=== PATIENT | female | born 1965 | race Caucasian/White ===

== ENCOUNTER 2018-06-01 11:36 | Outpatient (REF) | payer BC, SELFPAY ==
--- NOTE | 2018-06-01 10:20 | PAPFT_PTH ---
PATIENT: Maria Fernanda Viramontes LOC: [facility] U#:[id number] AGE/SX: 52/F ROOM: RE06/01/[address]: Domenica Carrera : 1965 BED: DIS: 06/01/2018 SPEC #: [id number] RECD: 06/06/18 13:01 STATUS: KAYLA REMarychuy #: [id number] MARIA ELENA: 06/01/18 10:[address]: Domenica Carrera DEPT: [facility] Cytology RECD BY: Mira Randall ENTERED: 06/06/18 13:01 SP TYPE: PAPFT OTHR DR: Kita Hilario Tissues: 1 - CX/ENDOCX FOR PAP SMEARS Procedures: PAP THIN PREP/UVM Screening Comments: [id number] (UNSATISFACTORY FOR EVALUATION)
== END 2018-06-01 11:56 ==
LOC: LBN 11:36
PROVIDERS: PCP Family Medicine; Visit Provider Naturopath
DX: Z12.4 Encounter for screening for malignant neoplasm of cervix (principal); Z01.419 Encounter for gynecological examination (general) (routine) without abnormal findings
CPT/HCPCS: 88142

== ENCOUNTER 2018-07-09 15:06 | Outpatient (REF) | payer BC, SELFPAY ==
--- NOTE | 2018-07-09 11:00 | PAPFT_PTH ---
PATIENT: Maria Fernanda Viramontes LOC: [facility]#:[id number] AGE/SX: 52/F ROOM: RE07/09/[address]: Kita Hilario : 1965 BED: DIS: 07/09/2018 SPEC #: [id number] RECD: 07/09/18 18:10 STATUS: KAYLA REMarychuy #: [id number] MARIA ELENA: 07/09/18 11:[address]: Kita Hilario DEPT: [facility] Cytology RECD BY: Mira Randall Tissues: 1 - CX/ENDOCX FOR PAP SMEARS Procedures: PAP THIN PREP/UVM Screening HPV DNA PROBE Comments: [id number]
== END 2018-07-09 15:26 ==
LOC: NCHCN 15:06
PROVIDERS: PCP Family Medicine; Visit Provider Family Medicine
DX: Z12.4 Encounter for screening for malignant neoplasm of cervix (principal); Z11.51 Encounter for screening for human papillomavirus (HPV); Z00.00 Encounter for general adult medical examination without abnormal findings
CPT/HCPCS: 88142; 87624

== ENCOUNTER 2018-08-06 00:28 | Outpatient (CLI) | payer BC, SELFPAY ==
--- NOTE | 2018-08-06 11:08 | DI.MAMMO_ITS ---
SYMPTOM/DIAGNOSIS: SCREENING, Z12.31 MAMMOGRAMS: Mammograms were interpreted according to the usual protocol including computer analysis with CAD system, tomosynthesis and C view imaging. Comparison is made with prior examinations. Breast density, Category C. No suspicious masses or microcalcifications are seen. There is no definite evidence of malignancy. IMPRESSION: Negative mammogram. Routine screening is recommended. Category 1. MQSA ASSESSMENT OF FINDINGS: Negative. Category 1. Patient will receive a letter notifying them of these results. Bi-RADS category C. The breasts are heterogeneously dense, which may obscure small masses.
== END 2018-08-06 00:48 ==
PROVIDERS: PCP Family Medicine; Visit Provider Family Medicine
DX: Z12.31 Encounter for screening mammogram for malignant neoplasm of breast (principal)
CPT/HCPCS: 77063; 77067

== ENCOUNTER 2018-09-24 10:06 | Day surgery (SDC) | payer BC, SELFPAY ==
--- NOTE | 2018-09-24 06:50 | W.COLOREPORT ---
Date of service: 09/24/18 Time of Service: 11:23 Colonoscopy Report Date of procedure: 09/24/18 Pre-op diagnosis general: Colon Cancer Screening Post-op diagnosis procedure note: other (colon polyp) Procedure: Colonoscopy with polypectomy with cold forceps Surgeon: Genny Singh Anesthesia proc note operative: other (General/ ASA 1 /Munir Alvarez CRNA) Estimated blood loss (mL): 3 Complications: None Disposition: same day Indications: Mrs. Viramontes is a pleasant 52 year old female seen in the office for her first Colonoscopy. There is no family history. Risks, benefits and complications have been reviewed. Complications include but are not limited to bleeding, pain, perforation, missed small lesion/polyp, sore throat, aspiration and adverse reaction to the medications. Questions were entertained and answered to their satisfaction and they wished to proceed. No guarantees were given or implied. Prep: Miralax/Dulcolax Procedure Start Time: 11:23 Procedure End Time: 11:50 Retraction Time: 15 minutes Findings: One <1 cm polyp in the ascending colon Procedure Description: After informed consent was obtained the patient was taken to the procedure room and placed in a left decubitous position. Monitors were applied and a time out was done. The patients name, date of , procedure, allergies to medications and metal in their body was reviewed. The patient was then sedated. Once sedated and comfortable a rectal exam was done. External exam was normal. Internal exam revealed a normal sphincter tone and no palpable masses. The scope was then introduced and retro-flexed. No internal hemorrhoids were identified. The scope was then advanced to the cecum with some difficulty. The colon was tortuous from the descending to the proximal transverse colon. The TI and appendiceal orifice were identified. The prep was adequate. The scope was then slowly retracted over 15 minutes back into the rectum. Polyps were removed with cold forceps in the ascending colon. The scope was removed and the patient was woken up and taken back to Same day surgery in stable condition. The patient tolerated the procedure well and there were no immediate complications. Follow up: The patient should follow up in 3-5 years unless they develop changes in bowel habits or other new gastrointestinal complaints.
--- NOTE | 2018-09-24 06:52 | W.PM.DSUDISC ---
Discharge Plan Disposition Patient Disposition: HOME Condition: Good Discharge Details Reason For Visit: Colonoscopy Attending Provider: Genny Singh Primary Care Provider: Kita Hilario Home Meds and New Rx's Prescriptions: Continued cholecalciferol (vitamin D3) 1,000 unit capsule 1,000 unit PO DAILY RF: 0 zinc [Chelated Zinc] 50 mg tablet 50 mg PO DAILY RF: 0 calcium carbonate [Calcium 500] 500 mg calcium (1,250 mg) tablet 500 mg PO BID RF: 0 vitamin B complex [B Complex-Vitamin B12] tablet 1 tab PO DAILY RF: 0 glucosamine sulfate 2KCl 1,000 MG tablet 1,000 mg PO DAILY RF: 0 ibuprofen 600 MG tablet 600 mg PO TID PRN PRNRF: 0 Discontinued polyethylene glycol 3350 17 gram/dose powder 238 g PO ONCE Qty: 238 RF: 0 bisacodyl [Dulcolax (bisacodyl)] 5 mg tablet,delayed release (DR/EC) 5 mg PO ONCE Qty: 4 RF: 0 Discharge Instructions Instructions: Colonoscopy (DC), Colorectal Polyps (DC) Additional Instructions: Findings: ascending colon polyp Follow up: 3-5 years depending on final pathology results Please call if you develop: fevers >101.5 Nausea or Vomiting Abdominal pain that is not transient DAY SURGERY UNIT POST COLONOSCOPY INSTRUCTIONS 1. Because there will be medication in your system for the next 24 hours, you may feel a little sleepy. Your coordination will be affected. Therefore: a. Do not drive or operate dangerous equipment for 24 hours. b. Do not drink alcohol beverages for 24 hours (not even beer). c. Plan to go home and rest for the day. 2. Generally there are no restrictions on your activity after a day or so has gone by, but you may feel a bit fatigued for a few days. 3 After you arrive home you may have a light meal and return to a normal diet as you can tolerate it without feeling sick to your stomach. 4. After surgery, you may feel pain or discomfort. This should be only transient, but if it persists please contact your doctor. 5. If there are any questions regarding the findings of your procedure, please feel free to contact your doctor. 6. If you are unable to contact your doctor with a problem, contact the hospital at [phone]. 7. Continue all your regular medications unless directed otherwise. I understand the above instructions and have no questions. Signature of Patient or Responsible Adult Escort Date/Time Name of Responsible Adult Escort Signature of Nurse Date/Time Activity:: Activity as Tolerated Diet:: As Tolerated Discharge Orders Discharge Orders: Discharge Order (Routine); Ordered 09/24/18 Ordered By: Genny Singh DS: Diagnosis Discharge Diagnosis (1) S/P colonoscopy: Status: Acute (2) Colorectal polyp detected on colonoscopy: Status: Acute
[2018-09-24 10:31] VITALS: BP 120/87; PULSE 80; RESP 18; TEMP 36.5; O2SAT 97
[2018-09-24] MEDS: Lactated Ringers 1,000 ML 80 ML IV (10:50)
--- NOTE | 2018-09-24 11:41 | BOWEL_PTH ---
PATIENT: Maria Fernanda Viramontes LOC: [facility] U#:[id number] AGE/SX: 52/F ROOM: RE09/24/[address]: Genny Singh MD : 1965 BED: DIS: 09/24/2018 SPEC #: [id number] RECD: 09/24/18 12:58 STATUS: KAYLA REQ #: [id number] MARIA ELENA: 09/24/18 11:[address]: Genny Singh DEPT: Surgical Specimen RECD BY: Mira Randall ENTERED: 09/24/18 12:59 SP TYPE: Bowel OTHR DR: Kita Hilario Tissues: 1 - BIOPSY BOWEL Procedures: GROSS AND MICRO LEVEL 4 Comments: [id number]
[2018-09-24 12:34] VITALS: BP 122/80; PULSE 58; RESP 18; TEMP 36.1; O2SAT 100
== END 2018-09-24 12:55 | disposition home or self-care (01) ==
LOC: SUR 10:06
PROVIDERS: PCP Family Medicine; Visit Provider Surgery
PROC: 0DJD8ZZ Inspection of Lower Intestinal Tract, Via Natural or Artificial Opening Endoscopic (ICD-10-PCS; CPT 45378; principal; 2018-09-24 11:00)
DX: Z12.11 Encounter for screening for malignant neoplasm of colon (principal); D12.2 Benign neoplasm of ascending colon
CPT/HCPCS: 45380; 88305

== ENCOUNTER 2023-03-06 22:28 | Outpatient (REF) | payer BC, SELFPAY ==
[2023-03-06 14:49] LABS: Anion Gap 7.5 mmol/L (3-11); BUN 14 mg/dL (7-18); CO2 30.5 mmol/L (21.0-32.0); CREATININE 0.7 mg/dL (0.55-1.02); Calcium 9.9 mg/dL (8.5-10.1); Calculated LDL 119 mg/dL (<100); Chloride 101 mmol/L (98-107); Cholesterol 223 mg/dL (<200); Estimated GFR 99.57 (mL/min/1.73m2); Glucose 96 mg/dL (74-106); HDL Cholesterol 90 mg/dL (40-60); Potassium 4.2 mmol/L (3.5-5.1); Sodium 139 mmol/L (136-145); TSH 3.71 uIU/mL (0.36-3.74); Triglyceride 70 mg/dL (<150)
[2023-03-06 17:01] LABS: FREE T4 0.75 ng/dL (0.76-1.46)
== END 2023-03-06 22:29 | disposition home or self-care (01) ==
LOC: NCHCN 22:28
PROVIDERS: PCP Family Medicine; Visit Provider Nurse Practitioner Family
DX: R94.6 Abnormal results of thyroid function studies (principal); Z76.89 Persons encountering health services in other specified circumstances
CPT/HCPCS: 80048; 80061; 84439; 84443

== ENCOUNTER → 2023-03-24 00:45 | Outpatient (CLI) | payer BC, SELFPAY ==
--- NOTE | 2023-03-24 | DI.MAMMO_ITS ---
Exam(s) MAMMO SCREENING EXAM: MAMMO SCREENING CLINICAL HISTORY: SCREENING, Z12.31 TECHNIQUE: Mammograms were interpreted according to the usual protocol including computer analysis w [employer] CAD system, tomosynthesis and C-view imaging. COMPARISON: 2013 through 2018 FINDINGS: The breasts are composed of heterogeneously dense fibroglandular densities, Breast Density category C . No suspicious masses or suspicious microcalcifications are seen. No skin thickening or abnormal axillary lymph nodes are seen. There has been no significant change from prior exams. IMPRESSION: BI-RADS Category 1, Negative mammogram. Yearly screening mammography is recommended. Breast Density Category C, heterogeneously Dense. The mammogram demonstrates the patient's breast tissue is dense. Dense breast tissue is very common a nd is not abnormal but dense breast tissue can make it harder to find cancer on a mammogram. Also, de nse breast tissue may increase breast cancer risk. This information about the result of the mammogram report was provided to the patient to raise their awareness. Use this report when you speak with the patient about their risks for breast cancer, which includes their family history. At that time, you may recommend additional screening tests (Ultrasound or MRI) as they might be useful based on their r isk. A negative radiographic report should not delay biopsy if a dominant or clinically suspicious mass is present. Up to ten percent of cancers are not identified on mammography. A negative report may reinforce clinical impression. Adenosis and dense breasts may obscure an underlying neoplasm. False positive reports average 6 to 10%.
== END ==
PROVIDERS: PCP Family Medicine; Visit Provider Nurse Practitioner Family
DX: Z12.31 Encounter for screening mammogram for malignant neoplasm of breast (principal)
CPT/HCPCS: 77063; 77067

== ENCOUNTER 2024-03-11 16:54 | Outpatient (REF) | payer BC, SELFPAY ==
--- NOTE | 2024-03-11 10:10 | PAPFT_PTH ---
PATIENT: Maria Fernanda Viramontes LOC: [facility]#:[id number] AGE/SX: 58/F ROOM: RE03/11/[address]: Prachi Cronin : 1965 BED: DIS: 03/11/2024 SPEC #: [id number] RECD: 03/11/24 18:13 STATUS: KAYLA REMarychuy #: [id number] MARIA ELENA: 03/11/24 10:[address]: Prachi Cronin DEPT: [facility] Cytology RECD BY: Mira Randall Tissues: 1 - CX/ENDOCX FOR PAP SMEARS Procedures: PAP THIN PREP/UVM Screening HPV DNA PROBE Comments: (HPV 16 & 18/45) (CHLAMYDIA/GC)
[2024-03-12 11:09] LABS: Chlamydia Result Negative (Negative); GC Result Negative (Negative)
== END 2024-03-11 16:55 | disposition home or self-care (01) ==
LOC: NCHCN 16:54
PROVIDERS: PCP Nurse Practitioner Family; Visit Provider Nurse Practitioner Family
DX: Z12.4 Encounter for screening for malignant neoplasm of cervix (principal); Z11.3 Encounter for screening for infections with a predominantly sexual mode of transmission
CPT/HCPCS: 87491; 87591; 88142; 87624

== ENCOUNTER 2024-07-15 07:30 | Day surgery (SDC) | payer BC, SELFPAY ==
--- NOTE | 2024-07-14 08:35 | W.PM.DSUDISC ---
Date of service: 07/15/24 Discharge Plan Disposition Patient Disposition: Home Condition: Good Discharge Details Reason For Visit: Screening colonoscopy Attending Provider: Michael Brewer Primary Care Provider: Prachi Cronin Home Meds and New Rx's Prescriptions: Continued probiotics PO Tumeric PO cholecalciferol (vitamin D3) 1,000 unit capsule 1,000 unit PO DAILY Chelated Zinc 50 mg tablet 50 mg PO DAILY calcium carbonate [Calcium 500] 500 mg calcium (1,250 mg) tablet 500 mg PO BID vitamin B complex [B Complex-Vitamin B12] tablet 1 tab PO DAILY multivitamin Tablet 1 tab PO DAILY magnesium 200 mg tablet 400 mg PO DAILY ibuprofen 600 MG tablet 600 mg PO TID PRN PRN0RF Discontinued bisacodyl 5 mg tablet,delayed release (DR/EC) 5 mg PO ONCE PRN (Reason: Colonoscopy Bowel Prep) Qty: 4 0RF Rx Instructions: Per Colonoscopy bowel prep instructions polyethylene glycol 3350 17 gram/dose powder 238 g PO ONCE Qty: 238 0RF Rx Instructions: For Colonoscopy bowel prep, as directed by office Discharge Instructions Additional Instructions: Maria Fernanda, was very nice meeting you today, I hope you are comfortable through the procedure. Everything went very smoothly. Your prep was outstanding we could see everything fine. I did not find any signs of tumors or polyps today. Because of the type of polyp that you had removed on your last colonoscopy, I recommend another 5-year interval. If that colonoscopy is normal, then we can give stronger consideration to a longer timeframe between tests. If you need anything or have any questions at all, please do not hesitate to ask. 1. If tolerated, consume a soft, low fiber diet for 1-2 days. 2. Do not drive, drink alcohol, operate machinery, make critical decisions, or do activities that require coordination or balance for 24 hours. 3. Because air was put into your colon during the procedure, expelling air from your rectum (passing gas or farting) is normal. 4. You may not have a bowel movement for 1-3 days because of the colonoscopy prep. This is normal. 5. Go directly to the emergency room if you notice any of the following: Develop chills (warm to touch), or if you have a thermometer and your temperature is above 101 Difficulty breathing or difficultly swallowing Persistent vomiting Severe abdominal pain, other than gas cramps Severe chest pain Black, tarry stools Any bleeding ? exceeding one tablespoon 6. Call your physician if the site where your intravenous was started becomes red, swollen, painful, and warm to touch. 7. Your physician has reviewed your pre-procedure medications. Please continue to take those medications as previously ordered. You will be given specific information/education regarding any changes to your medications before leaving. Activity:: Activity as Tolerated Diet:: As Tolerated Discharge Orders Discharge Orders: Discharge Order (Routine); Ordered 07/14/24 Ordered By: Michael Brewer DS: Diagnosis Discharge Diagnosis (1) Encounter for screening colonoscopy: Status: Acute Asessment and Plan: Negative screening colonoscopy today; based on adenomatous polyps in the past, recommend 5-year interval for the next follow-up
--- NOTE | 2024-07-14 08:36 | COLE_ITS ---
Date of service: 07/15/24 Time of Service: 09:28 Colonoscopy Report Date of procedure: 07/15/24 Pre-op diagnosis general: Screening colonoscopy Post-op diagnosis procedure note: other (Negative screening colonoscopy) Procedure: Colonoscopy Surgeon: Michael Brewer Anesthesia Type: General:No Airway Estimated blood loss (mL): 0 Pathology: none sent Complications: None Disposition: same day Indications: Romina is a 58-year-old woman with history of adenomatous polyps who needs her next screening colonoscopy Prep: Miralax/Dulcolax Procedure Start Time: 08:56 Procedure End Time: 09:20 Retraction Time: 10 Findings: Negative screening colonoscopy Procedure Description: After the induction of anesthesia, and with the patient in left lateral decubitus position, I began by performing an external anorectal exam.? Perineum and skin were normal, as was the anal verge.? There was no evidence of external hemorrhoids.? Next, I performed a digital rectal exam.? I did not appreciate any abnormal findings.? Next, I advanced a colonoscope into the rectal vault.? I performed retroflexion.? This appeared normal.? Using insufflation, I then advanced the colonoscope beyond the rectal folds and into the sigmoid colon before advancing towards the cecum.? The quality of the prep was outstanding.? The scope was noted to be in the cecum by identification of the ileocecal valve and appendiceal orifice.? I then began withdrawing the colonoscope using repeated irrigation as necessary for full evaluation of the colonic mucosa. ?Once the scope was withdrawn to the level of the rectum, great care was taken to examine portions of the rectal folds.? I saw no signs of tumors, polyps, or any other worrisome pathology. Finally, the scope was withdrawn and the patient was brought to the same-day surgery recovery unit as the anesthetic wore off. ?The findings and instructions were shared with the patient prior to discharge. Irvona Bowel Prep Irvona Bowel Prep Right Colon: 3 Left Colon: 3 Transverse Colon: 3 Total Score: 9
[2024-07-15 07:41] VITALS: BP 124/93; PULSE 71; RESP 16; TEMP 36.3; O2SAT 98
[2024-07-15] MEDS: Lactated Ringers 1,000 ML 80 ML IV (08:03)
--- NOTE | 2024-07-15 08:18 | W.ANESPRE ---
General Info Date of Service Date Performed: 07/15/24 Height: 5 ft 7 in Weight: 71.1 kg Body Mass Index (BMI): 24.5 Surgical Procedure: Operation Date: 07/15/24 08:50 Proposed Procedure Side Surgeon nahun Brewer MD Meds Allergies and Home Medications Allergies Allergy/AdvReac Type Severity Reaction Status Date / Time No Known Allergies Allergy Verified 07/15/24 07:52 Home Medication ?Medication ?Instructions ?Recorded ibuprofen 600 mg tablet 600 mg PO TID PRN PRN 06/03/16 calcium carbonate (Calcium 500) 500 mg PO BID 07/09/18 cholecalciferol (vitamin D3) 25 1,000 unit PO DAILY 07/09/18 mcg (1,000 unit) capsule vitamin B complex (B 1 tab PO DAILY 07/09/18 Complex-Vitamin B12 tablet) zinc 50 mg tablet (Chelated Zinc) 50 mg PO DAILY 07/09/18 magnesium 200 mg tablet 400 mg PO DAILY 07/13/23 multivitamin 1 tab PO DAILY 07/13/23 Tumeric PO 07/04/24 probiotics PO 07/04/24 Current Visit Medications: Current Medications Generic Name Dose Route Start Last Admin Trade Name Freq PRN Reason Stop Dose Admin Ringer's Solution 1,000 mls @ 80 mls/hr 07/15/24 06:00 07/15/24 08:03 IV 07/15/24 23:59 80 mls/hr INFUSION ANALIA Administration IV Miscellaneous Supplies 1 each 07/15/24 06:00 Iv Access IV 07/15/24 23:59 DIRECTED ANALIA Ondansetron HCl 4 mg 07/14/24 08:37 Ondansetron 4 Mg/2 Ml Vial IVP 08/13/24 08:36 Q4H PRN PRN Nausea / Vomiting Sodium Chloride 0 ml 07/15/24 06:00 Normal Saline Flush 10 Ml Syr IV 07/15/24 23:59 PRN PRN Sodium Chloride 0 ml 07/15/24 06:00 Normal Saline 10 Ml Vial IJ 07/15/24 23:59 DIRECTED PRN Sterile Water 0 ml 07/15/24 06:00 Water,Injection,Sterile 10 Ml Vial IJ 07/15/24 23:59 DIRECTED PRN PFSH Active Problems Active Problems: Problem Status Onset Code Encounter for screening colonoscopy Acute Z12.11 Asymmetrical hearing loss Acute H91.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 Colorectal polyp detected on colonoscopy Acute ~09/24/18 K63.5 S/P colonoscopy Acute ~09/24/18 Z98.890 Medical History Medical History Trigger thumb, right thumb (06/13/16) Family history of cervical cancer History of colon polyps Low TSH level Otosclerosis Depression Onychomycosis Surgical History Surgical History H/O stapedectomy Left ear, the timeframe unclear, surgeon unknown History of arthroscopic knee surgery Tobacco Smoking/Tobacco Use Status: Never Passive smoking exposure: No Alcohol Alcohol Intake: never Substance Use Substance use: Never Substance use type: does not use Vital Signs and Lab Results Vital Signs Most Recent Vital Signs in EMR: Most Recent Vital Signs Temp Pulse Resp BP Pulse Ox 36.3 C L 71 16 124/93 H 98 07/15/24 07:41 07/15/24 07:41 07/15/24 07:41 07/15/24 07:41 07/15/24 07:41 Lab Results Blood Type / Crossmatch: No Data to Display Complete Blood Count: No Data to Display Complete Metabolic Panel: No Data to Display Liver Function Panel: No Data to Display Coagulation Panel: No Data to Display Cardiac Panel: No Data to Display Arterial Blood Gas: No Data to Display Venous Blood Gas: No Data to Display Pancreas Panel: No Data to Display Thyroid Panel: No Data to Display Infectious Disease: No Data to Display Blood Cultures: No Data to Display Toxicology Panel: No Data to Display Anesthesia Assessment and Plan Anesthesia History Personal History: No History of Anesthesia Complications Family History: No Family History of Anesthesia Complications Exercise Tolerance Exercise Tolerance: Metabolic Equivalents>4 Pertinent Negatives Pertinent Negatives: No Major Cardiovascular Symptoms or Complaints and No Major Pulmonary Symptoms or Complaints Cardiac & Pulmonary Exam Cardiac Exam: Normal S1/S2 Heart Sounds Pulmonary Exam: Clear Bilateral Breath Sounds Implantable Cardiac Device Does patient have a Pacemaker or an ICD?: No Airway Exam Known Difficult Airway: No Mallampati Class: 2 Mouth Opening: Normal (> 3cm) Thyromental Distance: Greater than 3 cm Neck Range of Motion: Full ROM Neck Circumference: Normal Teeth Condition: Normal Dentition ASA Classification ASA Score: ASA 2 Emergency Case?: No NPO Status NPO Status: NPO Clears >2 hours, Solids >8 hours Anesthesia Plan Resuscitation Status: Full Code Anesthesia Technique: General Anesthesia Airway Planned: Natural Airway Monitors Used: Standard Monitors
[2024-07-15 08:38] VITALS: BMI 24.5
[2024-07-15 09:27] VITALS: BP 102/66; PULSE 77; RESP 18; TEMP 36.5; O2SAT 97
--- NOTE | 2024-07-15 09:46 | W.ANESPOSTOP ---
Postoperative Evaluation Date, Time and Location Date Performed: 07/15/24 Time Performed: : Patient Location: Day Surgery Unit Vital Signs Most Recent Imported Vital Signs: Most Recent Vital Signs Temp Pulse Resp BP Pulse Ox 36.5 C 77 18 102/66 97 07/15/24 09:27 07/15/24 09:27 07/15/24 09:27 07/15/24 09:27 07/15/24 09:27 Pain Score Most Recent Pain Score: Most Recent Pain Score Pain Level 0 07/15/24 09:27 Assessment Mental Status: Awake (Alert & Oriented to Patient Baseline) Airway and Respiratory Function: Patent airway with normal (patient baseline) respiratory exam Cardiovascular Function: Hemodynamically Stable Hydration Status: Adequately Hydrated Nausea & Vomiting: No Nausea or Vomiting Pain: Pt. Denies Any Pain Peripheral Nerve Block: Patient did not receive a nerve block
[2024-07-15 09:51] VITALS: BP 110/68; PULSE 69; RESP 16; TEMP 36.2; O2SAT 99
== END 2024-07-15 10:18 | disposition home or self-care (01) ==
LOC: SUR 07:31
PROVIDERS: PCP Nurse Practitioner Family; Visit Provider Surgery
PROC: 0DJD8ZZ Inspection of Lower Intestinal Tract, Via Natural or Artificial Opening Endoscopic (ICD-10-PCS; CPT 45378; principal; 2024-07-15 08:45)
DX: Z12.11 Encounter for screening for malignant neoplasm of colon (principal); Z86.0101 Personal history of adenomatous and serrated colon polyps
CPT/HCPCS: 45378; J2003; J2405; J2704